=== PATIENT | female | born 1945 | race Two or more races ===

== ENCOUNTER 2021-10-18 05:03 | Emergency (ER) | payer MEDICARE, OTHER ==
[~2021-10-18] VITALS: Ht 149.9 cm; Wt 50.8 kg
--- NOTE | 2021-10-18 05:13 | NUR ---
[id number] FROM THE [facility] [place] C/O UNWITNESSED FALL RIGHT BACK OF HEAD BUMP, LEFT AND RIGHT ELBOW SKIN TEAR . PATIENT TAKEN TO ER BED 10. PATIENT PLACED ON MONITORS, SITTER AT BEDSIDE.
--- NOTE | 2021-10-18 05:20 | NUR ---
PT PROVIDED WITH WARM BLANKET FOR COMFORT
--- NOTE | 2021-10-18 05:52 | NUR ---
PT GOING TO CT
[2021-10-18] MEDS ORDERED: OLANZAPINE 10 MG VIAL IM ONE ×2 (06:20→06:30)
--- NOTE | 2021-10-18 06:32 | NUR ---
ABRAHAM #18G S/L. INVESTMENT PROFESSIONAL AT PT'S BEDSIDE
[2021-10-18 06:53] LABS: CALCIUM, SERUM 8.8 mg/dL (8.5-10.1); CARBON DIOXIDE 31 mmol/L (21-32); CHLORIDE 104 mmol/L (98-107); CREATININE 1.1 mg/dL (0.6-1.3); GLUCOSE 187 mg/dL (74-106); POTASSIUM 4.1 mmol/L (3.5-5.1); SODIUM SERUM 140 mmol/L (136-145); UREA NITROGEN, BLOOD 16 mg/dL (7-18)
[2021-10-18 06:56] LABS: BASOPHILS % (AUTO) 0.4 % (0.0-2.0); EOSINOPHILS % (AUTO) 1.1 % (0.0-6.0); HEMATOCRIT 40 % (33-45); HEMOGLOBIN 13.5 g/dL (11.5-14.8); LYMPHOCYTES # (AUTO) 0.5 K/uL (0.8-4.8); LYMPHOCYTES % (AUTO) 17.6 % (20.0-44.0); MEAN CORPUSCULAR HGB CONC 34 g/dl (31.0-36.0); MEAN CORPUSCULAR VOLUME 93 fL (82-100); MONOCYTES # (AUTO) 0.2 K/uL (0.1-1.30); MONOCYTES % (AUTO) 6.4 % (2.0-12.0); NEUTROPHILS # (AUTO) 2.1 K/uL (1.8-8.9); NEUTROPHILS % (AUTO) 74.5 % (43.0-81.0); PLATELET COUNT (AUTO) 78 K/uL (150-450); RED BLOOD CELL COUNT(AUTO) 4.24 MIL/uL (4.0-5.2); WHITE BLOOD COUNT (AUTO) 2.8 K/uL (4.3-11.0)
--- NOTE | 2021-10-18 06:59 | NUR ---
MAINSPRING REVERSE WINDER AT PT'S BEDSIDE
[2021-10-18 07:30] VITALS: BP 140/68
--- NOTE | 2021-10-18 07:30 | NUR ---
Patient discharged to home in stable condition. Written and verbal after care instructions given. Patient verbalizes understanding of instruction.
== END 2021-10-18 07:31 | disposition home or self-care (01) ==
LOC: ER 05:05
DX: S50.312A Abrasion of left elbow, initial encounter (principal); S50.311A Abrasion of right elbow, initial encounter; I10 Essential (primary) hypertension; E11.9 Type 2 diabetes mellitus without complications; Z88.0 Allergy status to penicillin; W18.30XA Fall on same level, unspecified, initial encounter; Y93.89 Activity, other specified; Y92.89 Other specified places as the place of occurrence of the external cause; Y99.8 Other external cause status
CPT/HCPCS: 99284; 72125; 96372; 93005; 70450; 85025; 80048; 36415; 84484; J3490